=== PATIENT | female | born 1950 | race Caucasian/White ===

== ENCOUNTER 2018-05-23 10:42 | Emergency (ER) | payer MEDICARE, OTHER ==
[~2018-05-23] VITALS: Ht 149.9 cm; Wt 70.9 kg
[2018-05-23 10:55] VITALS: BP 132/76
== END 2018-05-23 13:13 | disposition home or self-care (01) ==
LOC: ED 13:07
DX: S23.3XXA Sprain of ligaments of thoracic spine, initial encounter (principal); S13.4XXA Sprain of ligaments of cervical spine, initial encounter; S33.5XXA Sprain of ligaments of lumbar spine, initial encounter; V49.49XA Driver injured in collision with other motor vehicles in traffic accident, initial encounter; Y93.89 Activity, other specified; Y92.89 Other specified places as the place of occurrence of the external cause; Y99.8 Other external cause status
CPT/HCPCS: 72050; 72072; 72110; 99284

== ENCOUNTER 2020-12-03 20:46 | Observation (INO) | payer MEDICARE ==
[~2020-12-03] VITALS: Ht 149.9 cm; Wt 69.1 kg
--- NOTE | 2020-12-03 21:28 | NUR ---
WARM BLANKETS GIVEN, PT ON MONITOR. PATIENT UPDATED ON PLAN OF CARE. NO NOTED NEEDS AT THIS TIME. WILL CONTINUE TO MONITOR.
[2020-12-03 21:32] LABS: BASOPHILS % (AUTO) 1 % (0-1); EOSINOPHILS % (AUTO) 4 % (1-7); LYMPHOCYTES % (AUTO) 37 % (22-44); MEAN CORPUSCULAR HEMOGLOBIN 29.5 pg (27.0-34.8); MEAN CORPUSCULAR HGB CONC 33.5 g/dL (32.4-35.8); MEAN PLATELET VOLUME 10.7 fL (7.4-10.4); MONOCYTES % (AUTO) 11 % (2-9); NEUTROPHILS % (AUTO) 48 % (42-75); PLATELET COUNT 174 x10^3/uL (130-400); RED CELL DISTRIBUTION WIDTH 13.8 % (9.6-15.2)
[2020-12-03 21:35] LABS: MD NO
[2020-12-03 21:40] LABS: ALANINE AMINOTRANSFERASE 28 U/L (12-78); ALBUMIN 3.9 g/dL (3.4-5.0); ANION GAP 8 mmol/L (5-15); CALCIUM 9.1 mg/dL (8.5-10.1); CHLORIDE 109 mmol/L (98-107); CREATININE 0.82 mg/dL (0.55-1.02)
[2020-12-03 21:45] LABS: ALKALINE PHOSPHATASE 75 U/L (45-117); BILIRUBIN,TOTAL 0.3 mg/dL (0.2-1.0); TROPONIN I < 0.015 ng/mL (0.000-0.045)
--- NOTE | 2020-12-03 22:11 | NUR ---
MD AT BEDSIDE WITH PATIENT DISCUSSING PLAN OF CARE. NO NOTED NEEDS AT THIS TIME.
--- NOTE | 2020-12-03 22:30 | NUR ---
PATIENT TAKEN TO CT WITH AYUSH RANGEL
--- NOTE | 2020-12-03 22:38 | NUR ---
PATIENT BACK FROM CT. TOLERATED WELL
[2020-12-03] MEDS ORDERED: OMNIPAQUE 350 MG/ML, 75ML BOTTLE ONE (22:43)
--- NOTE | 2020-12-03 22:53 | NUR ---
PATIENT UPDATED ON PLAN OF CARE. NO NOTED NEEDS AT THIS TIME. WILL CONTINUE TO MONITOR.
[2020-12-03] MEDS ORDERED: ACETAMINOPHEN 325 MG TABLET PO PRN (23:30)
[2020-12-03] MEDS ORDERED: ENOXAPARIN 40 MG/0.4 ML SQ SCH (23:30)
[2020-12-03] MEDS ORDERED: ONDANSETRON 2MG/ML, 2ML IVPush PRN (23:30)
[2020-12-03] MEDS ORDERED: morphine SULFATE 10 MG/ML, 1ML IVPush PRN (23:30)
[2020-12-03] MEDS ORDERED: ASPI500T4 PO (23:54)
[2020-12-03] MEDS ORDERED: LEVO25TA2 PO (23:54)
[2020-12-03] MEDS ORDERED: LOSA25TA25 PO (23:54)
[2020-12-03] MEDS ORDERED: GLIP5POW PO (23:54)
[2020-12-03] MEDS ORDERED: METO25TA35 PO (23:54)
[2020-12-03] MEDS ORDERED: METF500T17 PO (23:54)
[2020-12-04 00:27] VITALS: BP 153/65
[2020-12-04] MEDS ORDERED: GLIM2TAB7 PO (00:33)
[2020-12-04] MEDS ORDERED: ROSU10TA26 PO (00:33)
[2020-12-04 03:15] LABS: BASOPHILS % (AUTO) 1 % (0-1); EOSINOPHILS % (AUTO) 4 % (1-7); LYMPHOCYTES % (AUTO) 47 % (22-44); MEAN CORPUSCULAR HEMOGLOBIN 29.5 pg (27.0-34.8); MEAN CORPUSCULAR HGB CONC 33.5 g/dL (32.4-35.8); MEAN PLATELET VOLUME 10.4 fL (7.4-10.4); MONOCYTES % (AUTO) 11 % (2-9); NEUTROPHILS % (AUTO) 37 % (42-75); PLATELET COUNT 156 x10^3/uL (130-400); RED BLOOD COUNT 4.56 x10^6/uL (3.82-5.3); RED CELL DISTRIBUTION WIDTH 13.9 % (9.6-15.2)
[2020-12-04 03:22] LABS: MD NO
[2020-12-04 03:24] LABS: ANION GAP 4 mmol/L (5-15); CALCIUM 9.2 mg/dL (8.5-10.1); CHLORIDE 110 mmol/L (98-107); CHOLESTEROL, TOTAL 145 mg/dL (140-239); CREATININE 0.69 mg/dL (0.55-1.02); TRIGLYCERIDES 99 mg/dL (50-200); VLDL CHOLESTEROL 20 mg/dL (0-25)
[2020-12-04 03:28] LABS: CHOL/HDL RATIO 2.7; HDL CHOL % 37 % (28-40); HDL CHOLESTEROL (DIRECT) 53 mg/dL (40-60); LDL CHOLESTEROL,CALCULATED 72 mg/dL (54-169); LDL/HDL RATIO 1.4 (0.5-3.0); TROPONIN I < 0.015 ng/mL (0.000-0.045)
[2020-12-04] MEDS ORDERED: ASPIRIN 325 MG TABLET PO SCH (06:00)
[2020-12-04] MEDS ORDERED: LOSARTAN 25MG TABLET PO ONE (07:30)
[2020-12-04] MEDS ORDERED: LEVOTHYROXINE 25 MCG TABLET PO SCH (07:30)
[2020-12-04] MEDS ORDERED: METOPROLOL TARTRATE 25 MG TAB PO ONE (07:30)
[2020-12-04 07:51] VITALS: BP 137/77
[2020-12-04] MEDS ORDERED: GLUCAGON 1 MG IM PRN (08:00)
[2020-12-04] MEDS ORDERED: DEXTROSE 4 GM TAB.CHEW PO PRN (08:00)
[2020-12-04] MEDS ORDERED: DEXTROSE 50%, 50ML SYRINGE IVPush PRN (08:00)
[2020-12-04] MEDS ORDERED: REGADENOSON 0.4 MG/5 ML SYRINGE ONE (08:57)
[2020-12-04] MEDS ORDERED: SODIUM CHLORIDE FLUSH 10ML SYR IVF SCH (09:00)
[2020-12-04] MEDS ORDERED: INSULIN LISPRO 100 UNITS/ML, PEN SQ-INSULIN SCH (11:00)
[2020-12-04 12:42] LABS: TROPONIN I < 0.015 ng/mL (0.000-0.045)
[2020-12-04 12:57] VITALS: BP 129/77
[2020-12-04] MEDS ORDERED: ATORVASTATIN 40 MG TABLET PO SCH (21:00)
== END 2020-12-04 14:00 | disposition home or self-care (01) ==
LOC: ED 21:39 → SUATTDRO 23:27 → EDIP 23:29 → INTOOBSV 23:29 → 5SO 12-04 00:21 → DCLOUNGE 12-04 13:54
PROVIDERS: ADMIT Internal Medicine; ATTEND Internal Medicine
DX: R07.89 Other chest pain (principal); I10 Essential (primary) hypertension; E11.9 Type 2 diabetes mellitus without complications; E78.5 Hyperlipidemia, unspecified; E03.9 Hypothyroidism, unspecified; K44.9 Diaphragmatic hernia without obstruction or gangrene; M85.80 Other specified disorders of bone density and structure, unspecified site; Z88.0 Allergy status to penicillin; Z79.899 Other long term (current) drug therapy; Z79.82 Long term (current) use of aspirin; Z79.84 Long term (current) use of oral hypoglycemic drugs
CPT/HCPCS: 36415; 71045; 71275; 78452; 80048; 80053; 80061; 82962; 83690; 83880; 84443; 84484; 85025; 93005; 93017; 96372; 99285; A9502; G0378; J1650; J2785; Q9967